=== PATIENT | male | born 1990 | race Two or more races ===

== ENCOUNTER 2024-10-23 12:02 | Emergency (ER) | payer SELFPAY ==
[2024-10-23] MEDS ORDERED: KETOROLAC 30 MG/ML INJ ONE (13:33)
[2024-10-23 13:54] LABS: Absolute Eosinophils 0.3 K/uL (0-0.5); Absolute Lymphocytes (CBC) 2.5 K/uL (0.7-4.9); Absolute Monocytes 0.4 K/uL (0.1-1.3); Absolute Neutrophil 2.9 K/uL (1.8-8.0); Basophils % 0.8 % (0-1.3); Eosinophils % 5.5 % (0-4.4); Hematocrit 46.5 % (39.6-49.0); Hemoglobin 15.7 g/dL (13.6-17.9); Lymphocytes % 40.2 % (15.3-44.8); MCH 31.4 pg (27.0-35.0); MCHC 33.9 g/dL (32.0-36.0); MCV 92.8 fL (80-100); MPV 8.1 fL (7.6-11.3); Neutrophils % 47.5 % (41.7-73.7); Nucleated Red Blood Cells % 0.1 % (0-0); Platelets 263 thou/uL (152-406); RBC Red Blood Cell Count 5.01 M/uL (4.33-5.43); Red Cell Distribution Width 13.7 % (12.1-15.2)
[2024-10-23 14:04] LABS: Specific Gravity 1.022 (1.005-1.030); Urine Bilirubin Negative (Negative); Urine Blood Negative (Negative); Urine Clarity Clear (Clear); Urine Color Light-Yellow (Yellow); Urine Glucose Negative (Negative); Urine Ketones Negative (Negative); Urine Microscopic Reflex YN ORDER UMIC; Urine Nitrite Negative (Negative); Urine Protein Negative (Negative); Urine Urobilinogen 1+ mg/dL (0.2-1.0); Urine pH 6.5 (5.0-7.0)
[2024-10-23 14:05] LABS: Sqamous Epithelial <5 /HPF (None Seen); Urine Bacteria <20 /HPF (<20); Urine Culture Reflex Order NOT NEEDED; Urine RBC <5 /HPF (None Seen); Urine WBC <5 /HPF (<5)
[2024-10-23 14:19] LABS: Albumin 3.5 g/dL (3.4-5.0); Albumin/Globulin Ratio 0.9 (1.1-1.8); Bilirubin Total 0.2 mg/dL (0.2-1.0); Globulin 3.9 g/dL (2.3-3.5); Protein, Total 7.4 g/dL (6.4-8.2)
--- NOTE | 2024-10-23 15:11 | EDPHYS ---
Physician Documentation [facility] Name: Tu Flores Age: 34 yrs Sex: Male : 1990 Arrival Date: 10/23/2024 Time: 12:02 Bed 18 Private MD: ED Physician Ishan Hendrickson HPI: 10/23 12:36 This 34 yrs old Male presents to ER via EMS with complaints of Abdominal Pain. 7 12:36 34-year-old male with no prior medical history presents to the ER complaining of left jh7 lower quadrant pain starting last night. He denies any fever, nausea, vomiting, diarrhea, or constipation. He also denies any abdominal injury. He reports that his last bowel movement was last night.. Historical: - Allergies: 12:36 No Known Allergies; cm10 - PMHx: 12:36 Hydronephrosis; cm10 - Immunization history:: Adult Immunizations up to date. - Infectious Disease History:: Denies. - Social history:: Smoking status: Patient reports the use of cigarette tobacco products, denies chronic smoking, but will smoke occasionally. ROS: 12:36 Constitutional: Per HPI jh7 Exam: 12:36 Constitutional: This is a well developed, well nourished patient who is awake, alert, jh7 and in no acute distress. Head/Face: Normocephalic, atraumatic. Cardiovascular: Regular rate and rhythm with a normal S1 and S2. No gallops, murmurs, or rubs. Normal PMI, no JVD. No pulse deficits. Respiratory: Lungs have equal breath sounds bilaterally, clear to auscultation and percussion. No rales, rhonchi or wheezes noted. No increased work of breathing, no retractions or nasal flaring. Back: No spinal tenderness. No costovertebral tenderness. Full range of motion. Skin: Warm, dry with normal turgor. Normal color with no rashes, no lesions, and no evidence of cellulitis. MS/ Extremity: Pulses equal, no cyanosis. Neurovascular intact. Full, normal range of motion. Neuro: Awake and alert, GCS 15, oriented to person, place, time, and situation. Normal gait. 12:36 Abdomen/GI: Inspection: abdomen appears normal, Bowel sounds: normal, Palpation: soft, mild abdominal tenderness, in the left lower quadrant, Vital Signs: 12:35 BP 122 / 90; Pulse 79; Resp 16; Temp 97(TE); Pulse Ox 100% on R/A; Weight 92.08 kg; cm10 Height 5 ft. 9 in. ; Pain 6/10; 14:29 BP 127 / 79; Pulse 74; Resp 18; Pulse Ox 100% on R/A; mb9 12:35 Body Mass Index 29.98 (92.08 kg, 175.26 cm) cm10 12:35 Pain Scale: Adult cm10 MDM: 12:12 Medical Screening Exam initiated [facility] 14:30 Differential diagnosis: appendicitis, diverticulitis, non-specific abd pain, jh7 Ureterolithiasis, urinary tract infection. Data reviewed: vital signs, nurses notes, lab test result(s). I considered the following discharge prescriptions or medication management in the emergency department Medications were administered in the Emergency Department. See MAR. Counseling: I had a detailed discussion with the patient and/or guardian regarding the historical points, exam findings, and any diagnostic results supporting the discharge/admit diagnosis, lab results, to return to the emergency department if symptoms worsen or persist or if there are any questions or concerns that arise at home. Response to treatment: the patient's symptoms have markedly improved after treatment. ED course: Patient was able to pass a p.o. challenge shortly before discharge. He reported that the Toradol did help his pain and he was informed that due to his normal labs and symptom improvement, CT scan is not indicated at this time. However, if he develops worsening symptoms or any new concerning symptoms, he should return to the ER for further eval.. 10/23 12:24 Order name: CBC with Diff; Complete Time: 14:28 [facility] 10/23 12:24 Order name: CMP; Complete Time: 14:28 [facility] 10/23 12:24 Order name: Lipase; Complete Time: 14:28 [facility] 10/23 12:24 Order name: UA Rfx Siva Cult if indicated; Complete Time: 14:28 [facility] 10/23 12:24 Order name: IV Saline Lock; Complete Time: 13:50 [facility] 10/23 12:24 Order name: Labs collected and sent; Complete Time: 13:50 [facility] Administered Medications: 13:52 Drug: TORadol - Ketorolac IVP 15 mg IVP once Route: IVP; Site: right antecubital; mb9 14:29 Follow up: Response: No adverse reaction mb9 Disposition Summary: 10/23/24 15:10 Discharge Ordered Notes: Location: Home [facility] Problem: new [facility] Symptoms: have improved [facility] Condition: Stable [facility] Diagnosis - Lower abdominal pain, unspecified jh7 Followup: [facility] - With: Private Physician - When: 2 - 3 days - Reason: Recheck today's complaints Discharge Instructions: - Discharge Summary Sheet [facility] - Abdominal Pain, Adult [facility] Forms: - Medication Reconciliation Form [facility] - Patient Portal Instructions [facility] - Leadership Thank You Letter [facility] Signatures: Dispatcher [employer] Senait Kingsley, AUTOMATIC EDGER AUTOMATIC EDGER 7 Pratima Thibodeaux RN RN mb9 Savanah Quiroz RN RN cm10
--- NOTE | 2024-10-23 15:11 | ER ---
Nurse's Notes [facility] Name: Tu Flores Age: 34 yrs Sex: Male : 1990 Arrival Date: 10/23/2024 Time: 12:02 Bed 18 Private MD: Diagnosis: Lower abdominal pain, unspecified Presentation: 10/23 12:18 Chief complaint: EMS states: [facility]ON[facility] OUT [facility] [address] FOR PATIENT HAVING LEFT SIDED cm10 ABDOMINAL PAIN. 12:18 Method Of Arrival: EMS: [facility] cm10 12:35 Coronavirus screen: Client denies travel out of the [place] in the last 14 days. Ebola cm10 Screen: Patient denies travel to an Ebola-affected area in the 21 days before illness onset. Initial Sepsis Screen: Does the patient meet any 2 criteria? No. Patient's initial sepsis screen is negative. Does the patient have a suspected source of infection? No. Patient's initial sepsis screen is negative. Risk Assessment: Do you want to hurt yourself or someone else? Patient reports no desire to harm self or others. Onset of symptoms was October 23, 2024. Care prior to arrival: Glucose check: 112. 12:35 Acuity: RENETTA 3 cm10 Triage Assessment: 12:37 General: Appears in no apparent distress. uncomfortable, Behavior is calm, cooperative. cm10 Neuro: No deficits noted. Level of Consciousness is awake, alert, obeys commands, Oriented to person, place, time, situation, Appropriate for age. Respiratory: No deficits noted. Airway is patent Respiratory effort is even, unlabored, Respiratory pattern is regular, symmetrical. Historical: - Allergies: 12:36 No Known Allergies; cm10 - PMHx: 12:36 Hydronephrosis; cm10 - Immunization history:: Adult Immunizations up to date. - Infectious Disease History:: Denies. - Social history:: Smoking status: Patient reports the use of cigarette tobacco products, denies chronic smoking, but will smoke occasionally. Screenin:51 [facility] ED Fall Risk Assessment (Adult) History of falling in the last 3 months, mb9 including since admission No falls in past 3 months (0 pts) Confusion or Disorientation No (0 pts) Intoxicated or Sedated No (0 pts) Impaired Gait No (0 pts) Mobility Assist Device Used No (0 pt) Altered Elimination No (0 pt) Score/Fall Risk Level 0 - 2 = Low Risk Oriented to surroundings, Maintained a safe environment, Educated pt \T\ family on fall prevention, incl call for assistance when getting out of bed. Abuse screen: Denies threats or abuse. Nutritional screening: No deficits noted. Tuberculosis screening: No symptoms or risk factors identified. Assessment: 13:51 General: Appears in no apparent distress. Behavior is calm, cooperative. Pain: mb9 Complains of pain in abdomen Quality of pain is described as aching. Neuro: Level of Consciousness is awake, alert, obeys commands, Oriented to person, place, time, situation, Appropriate for age. Cardiovascular: Patient's skin is warm and dry. Respiratory: Airway is patent Respiratory effort is even, unlabored, Respiratory pattern is regular, symmetrical. GI: Bowel sounds present X 4 quads. Abd is soft and non tender X 4 quads. Reports lower abdominal pain. : No signs and/or symptoms were reported regarding the genitourinary system. EENT: No signs and/or symptoms were reported regarding the EENT system. Derm: Skin is pink, warm \T\ dry. Musculoskeletal: Range of motion: intact in all extremities. 15:14 Reassessment: No changes from previously documented assessment. Patient and/or family mb9 updated on plan of care and expected duration. Pain level reassessed. Patient is alert, oriented x 3, equal unlabored respirations, skin warm/dry/pink. Vital Signs: 12:35 BP 122 / 90; Pulse 79; Resp 16; Temp 97(TE); Pulse Ox 100% on R/A; Weight 92.08 kg; cm10 Height 5 ft. 9 in. ; Pain 6/10; 14:29 BP 127 / 79; Pulse 74; Resp 18; Pulse Ox 100% on R/A; mb9 12:35 Body Mass Index 29.98 (92.08 kg, 175.26 cm) cm10 12:35 Pain Scale: Adult cm10 ED Course: 12:09 Patient arrived in ED. al6 12:12 Senait Parson FNP is PHCP. jh7 12:12 Ishan Hendrickson MD is Attending Physician. jh7 12:36 Triage completed. cm10 12:37 Arm band placed on left wrist. Patient placed in waiting room. cm10 13:38 Thibodeaux, Lurdes, RN is Primary Nurse. mb9 13:50 UA Rfx Siva Cult if indicated Sent. mb9 13:50 CBC with Diff Sent. mb9 13:50 CMP Sent. mb9 13:50 Lipase Sent. mb9 13:50 Initial lab(s) drawn, by nc, sent to lab. Inserted saline lock: 20 gauge in right mb9 antecubital area, using aseptic technique. Blood collected. Flushed with 10 mL NS. 13:52 Placed in gown. Bed in low position. Call light in reach. Side rails up X 1. Provided mb9 Education on: press call light if needing anything. Client placed on continuous cardiac and pulse oximetry monitoring. NIBP monitoring applied. 15:14 No provider procedures requiring assistance completed. IV discontinued, intact, mb9 bleeding controlled, No redness/swelling at site. Pressure dressing applied. Administered Medications: 13:52 Drug: TORadol - Ketorolac IVP 15 mg IVP once Route: IVP; Site: right antecubital; mb9 14:29 Follow up: Response: No adverse reaction mb9 Medication: 13:52 VIS not applicable for this client. mb9 Outcome: 15:10 Discharge ordered by . juliocesar 15:14 Discharged to home ambulatory, mb9 15:14 Condition: stable 15:14 Discharge instructions given to patient, Instructed on discharge instructions, follow up and referral plans. Demonstrated understanding of instructions, follow-up care, 15:15 Patient left the ED. mb9 Signatures: Senait Parson PULL OVER MACHINE OPERATOR PULL OVER MACHINE OPERATOR Pratima Ramires, RN RN mb9 Savanah Quiroz RN RN 10 Alyx Olivera
[2024-10-23 15:27] VITALS: TEMP 97; O2SAT 100
[2024-10-23 15:28] VITALS: BP 127/79
== END 2024-10-23 15:15 | disposition home or self-care (01) ==
LOC: ER 12:02
DX: R10.32 Left lower quadrant pain (principal); F17.210 Nicotine dependence, cigarettes, uncomplicated
CPT/HCPCS: 36415; 80053; 81001; 83690; 85025; 96374; 99284